=== PATIENT | female | born 1965 | race Caucasian/White ===

== ENCOUNTER 2023-11-14 12:45 | Emergency (ER) | payer SELFPAY ==
[2023-11-14 12:52] VITALS: BP 163/93; PULSE 111; RESP 18; TEMP 36.8; O2SAT 99; BMI 29.5
--- NOTE | 2023-11-14 13:06 | XR_ITS ---
The [address] [address] Patient Name: MJ SETHI MRN: [id number] date: 1965 Sex: F Assigned Patient Location: ER Current Patient Location: ER Accession/Order Number: [id number] Exam Date: 11/14/2023 13:42 Report Date: 11/14/2023 14:03 At the request of: BARBARA JACKSON Procedure: XR hand RT min 3V IMAGES REVIEWED: XR hand RT min 3V COMPARISON: None available. CLINICAL INDICATION: right 2nd and 3rd finger injuries FINDINGS/IMPRESSION: 1. Partial soft tissue and bony amputation of the distal fourth digit. 2. Acute open displaced angulated fracture of the distal tuft fourth distal phalanx. 3. Acute intra-articular open displaced fracture involving the dorsal-ulnar aspect of the base of the fourth distal phalanx. 4. Acute intra-articular comminuted displaced fracture of the head-neck of the fourth middle phalanx. 5. Acute displaced fracture of the distal tuft third distal phalanx with apparent adjacent soft tissue laceration suggesting open fracture. 6. Advanced osteoarthritis first CMC joint. 7. No radiopaque foreign bodies seen in the soft tissues. Electronically authenticated by: MARIE STEVENS Date: 11/14/2023 14:03
[2023-11-14] MEDS: ONDANSETRON PF 4 MG/2 ML VIAL IV (13:22)
[2023-11-14] MEDS: HYDROMORPHONE HCL 1 MG/ML CARTRIDGE IVP (13:23)
[2023-11-14] MEDS: ADACEL DIPH,PERTUSS(ACELL),TET VAC/PF 0.5 ML ADULT SYRINGE IM (13:23)
[2023-11-14] MEDS: CEFAZOLIN SODIUM/DEXTROSE,ISO 2 GM/50 ML PIGGYBACK IV (13:32)
--- NOTE | 2023-11-14 14:20 | ED.UPPEXIN1 ---
HPI - Extremity Injury (Upper) General Chief Complaint: Wound/Laceration Stated Complaint: UPPER EXTREMITY INJURY R HAND Time Seen by Provider: 11/14/23 12:51 Source: patient Mode of arrival: walk-in Limitations: no limitations History of Present Illness HPI narrative: Just [employer]ATION[employer]ICE - Patient crushed her left hand between the truck and a tree, partially amputating the distal half of the left 4th finger. She also has an open fracture of the distal 3rd phalanx of the left hand. No other injuries. Tetanus is not up to date. Related Data Allergies Allergy/AdvReac Type Severity Reaction Status Date / Time codeine AdvReac Intermediate Verified 11/14/23 12:52 Penicillins AdvReac Intermediate Verified 11/14/23 12:52 NSAIDS (Non-Steroidal AdvReac Rash Verified 11/14/23 13:28 Anti-Inflamma Exam Narrative Exam Narrative: Nurses note and vital signs reviewed and patient is not hypoxic. afebrile General: The patient appears well and in no apparent distress. Patient is resting comfortably on cart. GCS = 15. Skin: Warm, dry, no pallor noted. Head: Normocephalic, atraumatic Neck: Supple, trachea mid-line, no tenderness, no lymphadenopathy. Full ROM and no cervical spinal tenderness. The patient has no step-offs or crepitus noted Cardiovascular: Regular Rate and Rhythm Respiratory: Lungs clear Musculoskeletal: distal half of the right 4th finger is partially amputated with a soft tissue stalk at the palmar aspect of the finger near the end of the middle phalanx keeping the distal portion attached. the distal portion of the finger is dusky. the laceration extends dorsally to the proximal portion of the middle 4th phalanx. It is unclear if the flexor or extensor tendons are affected. There is also an open zaheer fracture on the tip of the l3eft 3rd phalax. Remainder of the hand is unremarkable. Neurological: A&O x4, normal equal senior etl developer strength, normal finger to nose, normal speech, normal coordination, normal motor, normal sensory. Psychiatric: Cooperative Constitutional Vital Signs, click to edit/add: Last Vital Signs Temp 98.2 F 11/14/23 12:52 Pulse 111 H 11/14/23 12:52 Resp 18 11/14/23 12:52 BP 163/93 H 11/14/23 12:52 Pulse Ox 99 11/14/23 12:52 O2 Del Method Room Air 11/14/23 12:52 Course Vital Signs Vital signs: Vital Signs Temperature 98.2 F 11/14/23 12:52 Pulse Rate 111 H 11/14/23 12:52 Respiratory Rate 18 11/14/23 12:52 Blood Pressure 163/93 H 11/14/23 12:52 Pulse Oximetry 99 11/14/23 12:52 Oxygen Delivery Method Room Air 11/14/23 12:52 Temperature 98.2 F 11/14/23 12:52 Pulse Rate 111 H 11/14/23 12:52 Respiratory Rate 18 11/14/23 12:52 Blood Pressure 163/93 H 11/14/23 12:52 Pulse Oximetry 99 11/14/23 12:52 Oxygen Delivery Method Room Air 11/14/23 12:52 MDM - Extremity Injury (Upper) MDM Narrative Medical decision making narrative: Peripheral IV established. The patient was given 2 g of IV Ancef while her left hand soaked in Hibiclens solution. X-rays of the left hand were obtained. Tetanus was also updated. Bulky dressing applied by the ED nurse to the patient's left 4th finger which wrapped up the left 3rd finger as well. I spoke with the on-call orthopedist for hand at [facility]. Dr. Chapman excepted transfer this patient from our emergency department to [facility] and he spoke with the emergency department physician to gain acceptance and make them aware of this patient's transfer. Patient and spouse informed of need to go to [facility]. They do not want to wait for ambulance - she was informed of need to be NPO and go directly to [facility] ED. Imaging Data xr hand: Radiologist's impression: Patient Name: MJ SETHI MRN: [id number] date: 1965 Sex: F Assigned Patient Location: ER Current Patient Location: ER Accession/Order Number: [id number] Exam Date: 11/14/2023 13:42 Report Date: 11/14/2023 14:03 At the request of: BARBARA JACKSON Procedure: XR hand RT min 3V IMAGES REVIEWED: XR hand RT min 3V COMPARISON: None available. CLINICAL INDICATION: right 2nd and 3rd finger injuries FINDINGS/IMPRESSION: 1. Partial soft tissue and bony amputation of the distal fourth digit. 2. Acute open displaced angulated fracture of the distal tuft fourth distal phalanx. 3. Acute intra-articular open displaced fracture involving the dorsal-ulnar aspect of the base of the fourth distal phalanx. 4. Acute intra-articular comminuted displaced fracture of the head-neck of the fourth middle phalanx. 5. Acute displaced fracture of the distal tuft third distal phalanx with apparent adjacent soft tissue laceration suggesting open fracture. 6. Advanced osteoarthritis first CMC joint. 7. No radiopaque foreign bodies seen in the soft tissues. Electronically authenticated by: MARIE STEVENS Date: 11/14/2023 14:03 Discharge Plan Discharge Chief Complaint: Wound/Laceration Clinical Impression: Partial traumatic amputation of left ring finger through phalanx Patient Disposition: [facility] Time of Disposition Decision: 14:28 Discharge Location: [facility] Referrals: Physician,Non-Staff, [Primary Care Provider] - 1 week
[2023-11-14 14:31] VITALS: BP 138/89; PULSE 78; RESP 14; O2SAT 99
[2023-11-14 14:47] VITALS: PULSE 78; RESP 14; O2SAT 99
== END 2023-11-14 14:49 | disposition short-term general hospital (02) ==
PROVIDERS: Emergency Provider Emergency Medicine; Family Provider Family Medicine
DX: S68.625A Partial traumatic transphalangeal amputation of left ring finger, initial encounter (principal); S62.633A Displaced fracture of distal phalanx of left middle finger, initial encounter for closed fracture; W23.0XXA Caught, crushed, jammed, or pinched between moving objects, initial encounter; Z23 Encounter for immunization
CPT/HCPCS: 73130; 90471; 90715; 96365; 96375; 99285; J0690; J1170; J2405